=== PATIENT | male | born 1945 | race Caucasian/White ===

== ENCOUNTER 2018-11-29 22:39 | Observation (INO) | payer OTHER ==
[2018-11-29 22:56] VITALS: BMI 28.8
--- NOTE | 2018-11-29 23:27 | PDOC ---
Attending Attestation - Medical Decision Making 11/30/18 00:32 EXAM: HEAD CT WITHOUT CONTRAST HISTORY: Rule out bleed COMPARISON: None. FINDINGS: The ventricular system is midline and nondilated. The sulcal pattern is normal for the patient's age. There is no bleed, mass, extra-axial fluid collection or mass effect. No skull fracture or skull lesion is identified. The visualized paranasal sinuses and mastoid air cells are clear. IMPRESSION: No evidence of acute pathology. One or more of the following dose reduction techniques were used: automated exposure control, adjustment of the mA and/or kV according to patient size, use of iterative reconstructive technique. Read by: Hubert Mittal MD <Quyen Grier - Last Filed: 11/30/18 00:31> - Resident Resident Name: Sydney Myrick - ED Attending Attestation I have performed the following: I have examined & evaluated the patient, The case was reviewed & discussed with the resident, I agree w/resident's findings & plan, Exceptions are as noted - HPI HPI: 11/29/18 23:26 73 yo male BIBA and paramedics report he is intoxicated and was found outside his home with head trauma .The patient does not recall what happened. 11/29/18 23:41 - Physicial Exam PE: 11/29/18 23:27 wnwd 73 yo male with scalp laceration after a fall head curved 5 cm laceration, three abrasions noted on his scalp neck no midline tenderness lungs cta b/l cvs [id number] abdoman: flat,no rebound skin warm and dry neuro pt is intoxicated but able to converse and move all his extremities 11/30/18 00:39 11/30/18 00:54 - Medical Decision Making 11/30/18 00:39 ekg atrial sensed ventricular rhythm with occasional premature ventricular complex. PT very confused and will be placed on OBS admit 11/30/18 19:02 <Daija Multani - Last Filed: 11/30/18 19:02> Attestations - Attestations 11/30/18 00:32 Documentation prepared by Quyen Grier, acting as vice president medical affairs for Daija Multani MD. <Quyen Grier - Last Filed: 11/30/18 00:31>
--- NOTE | 2018-11-29 23:51 | PDOC ---
History of Present Illness - General Chief Complaint: Injury Stated Complaint: FALL Time Seen by Provider: 11/29/18 22:40 - History of Present Illness Initial Comments: Prosper Quinn is a 73yo man with a PMH of HTN, HLD, DJD, s/p pacemaker (doesn't know why) who was found outside by EMS with a head injury. EMS stated that he was "very drunk" and had an apparent head injury. Mr Quinn reports that he does not remember the injury or event. He recalls going to watch a [employer] today, returning home, starting to heat up dinner. He had "a vodka cocktail" (specifically states only one multiple times) while talking on the phone with a friend. The next thing he remembers, EMS was in his apartment. He says that his downstairs neighbor called the ambulance. He has no idea what happened. Mr Quinn repeats this story at least a dozen times while being examined. Past History - Past Medical History Allergies/Adverse Reactions: Allergies Allergy/AdvReac Type Severity Reaction Status Date / Time No Known Allergies Allergy Verified 08/02/14 15:40 Home Medications: Ambulatory Orders Amlodipine Besylate [Norvasc -] 5 mg PO DAILY 08/02/14 Aspirin [ASA -] 81 mg PO DAILY 08/02/14 Atorvastatin Ca [Lipitor -] 10 mg PO ASDIR 08/02/14 Levothyroxine [Synthroid -] 175 mcg PO DAILY 08/02/14 Ramipril 10 mg PO DAILY 08/02/14 Voltaren Gel 1% 1 applic TP ASDIR 08/02/14 Albuterol Sulfate [Proair Hfa] 8.5 gm IH PRN 11/29/18 Topiramate 25 mg PO BID 11/29/18 Anemia: No Asthma: (Sarcoidosis-no symptoms) Cancer: No Cardiac Disorders: Yes (RBBB) CVA: No COPD: No CHF: No Dementia: No Diabetes: No GI Disorders: Yes (H/O POLYPS) Disorders: Yes (BPH) HTN: Yes Hypercholesterolemia: Yes Liver Disease: No Seizures: No Thyroid Disease: Yes - Surgical History Abdominal Surgery: No Appendectomy: Yes Cardiac Surgery: Yes (PACEMAKER) Cholecystectomy: No Lung Surgery: No Neurologic Surgery: No Orthopedic Surgery: Yes (BILATERAL KNEE REPLACEMENTS) - Suicide/Smoking/Psychosocial Hx Smoking History: Unknown if ever smoked Have you smoked in the past 12 months: No If you are a former smoker, when did you quit?: 30 yrs ago Hx Alcohol Use: Yes Drug/Substance Use Hx: No (unable to assess) Substance Use Type: Alcohol Hx Substance Use Treatment: No Review of Systems - Review of Systems Comments:: 11/30/18 00:21 Could not obtain, Pt confused *Physical Exam - Vital Signs Last Vital Signs Temp Pulse Resp BP Pulse Ox 97.1 F L 78 19 134/71 98 11/29/18 22:53 11/29/18 22:53 11/29/18 22:53 11/29/18 22:53 11/29/18 22:53 - Physical Exam Comments: General: Confused, no acute distress HEENT: PERRL, EOMI, MMM. Voice slightly slurred. Limited neck ROM (appears chronic per previous visit); no posterior neck tenderness or apparent injury. Approx 3cm laceration on superior mid forehead. Dried blood over scalp, face. Apparent small left-sided abrasions. No ecchymosis, edema, or palpable injury. Cards: RRR, no murmur appreciated Pulm: Comfortable on room air, clear to auscultation bilaterally Abd: Soft, nontender, nondistended : No CVA tenderness Back: No bony tenderness, step-offs, deformities. No ecchymosis, edema, erythema , abrasions, or other injuries. Rectal: Normal tone, no blood noted, no perianal lesions Ext: Dried blood on b/l pant knees, but no obvious LE trauma. No tenderness to palpation. Ambulation deferred given fall risk. No LE edema. Moves all extremities, equal bilaterally. Vasc: Extremities WWP. Palpable radial and pedal pulses bilaterally Neuro: Alert, oriented to self, place date. Does not recall injury. Does not recall being outside. CN grossly intact, mildly slurred speech, motor/sensory grossly intact and symmetric Psych: Mood appropriate to situation Moderate Sedation - Procedure Monitoring Vital Signs: Procedure Monitoring Vital Signs Temperature 97.1 F L 11/29/18 22:53 Pulse Rate 78 11/29/18 22:53 Respiratory Rate 19 11/29/18 22:53 Blood Pressure 134/71 11/29/18 22:53 O2 Sat by Pulse Oximetry (%) 98 11/29/18 22:53 Procedures - Laceration/Wound Repair Frontal Wound Length: 2.6 to 5.0 cm Wound Explored: clean Wound's Depth, Shape: superficial Irrigated w/ Saline: Yes Anesthesia: 1% Lidocaine Amount of Anesthetic (ccs): 4 Wound Debrided: minimal Wound Repaired With: Sutures Suture Size/Type: 5:0, nylon Number of Sutures: 7 Layer Closure: No Sterile Dressing Applied: Yes ED Treatment Course - LABORATORY CBC & Chemistry Diagram: 11/30/18 00:06 11/30/18 00:06 - RADIOLOGY Radiology Studies Ordered: Category Date Time Status HEAD CT WITHOUT CONTRAST [CT] Stat CT Scan 11/29/18 23:34 Ordered CHEST X-RAY PORTABLE* [RAD] Stat Radiology 11/29/18 23:34 Ordered Medical Decision Making - Medical Decision Making 11/29/18 23:45 Prosper Quinn is a 73yo man with a PMH of HTN, HLD, DJD, s/p pacemaker placement (doesn't know why) who was found outside by EMS with a head injury. He does not remember the incident but was very repetitive during exam. - EMS stated pt was "very drunk" but no known h/o drinking, no obvious odor of alcohol. - Head laceration on superior forehead with dried blood over head and face. No other injury appreciated - Concern that confusion on exam may be due to head trauma, though cannot rule out alcohol or drug use. If fall is secondary to substance use, amnesia regarding the event is also concerning - h/o pacemaker, placed for unknown reasons. May have had syncopal event due to arrhythmia, CT, substance use. Also reports skipping multiple meals recently, 4- 5lb weight loss over several days, could be hypoglycemic or orthostatic. - CBC, CMP, mag, phos, EKG, trop, CXR, CT head, blood alcohol, UA, urine drug screen 11/30/18 01:35 - CT head completed, no acute abnormalities noted - Scalp laceration repaired at bedside. Lac on anterior upper forehead measuring 3cm, slighly flap shaped, clean and linear. Irrigated with saline, anesthetized with 4cc 1% lidocaine. Repaired with 7 simple interrupted sutures, 5-0 nylon. Bacitracin and sterile dressing applied. - 2x left-sided small linear abrasions repaired with dermabond. - 2x left sided abrasions, circular, 1.5cm in diameter, cleaned, abraded skin sharply debrided, bacitracin applied - Labs reviewed. Alcohol 176. No other concerning abnormalities - EKG completed. Ventricular paced rhythm with PVCs. - CXR w/o abnormalities - [employer] sent for hospital admission. 11/30/18 02:02 - Discussed with Dr Pathak. Will accept for admission. - Banana bag ordered due to unknown duration or frequency of alcohol use. Seen and discussed with Dr Multani. Sydney Myrick PGY1 *DC/Admit/Observation/Transfer Diagnosis at time of Disposition: Fall, Alcohol intoxication, Scalp laceration, Scalp abrasion - Discharge Dispostion Condition at time of disposition: Stable Decision to Admit order: Yes - Referrals - Patient Instructions - Post Discharge Activity
[2018-11-30 00:27] LABS: BASO % 0.3 % (0-2.0); EOS % 0.7 % (0-4.5); HEMATOCRIT 42.3 % (35.4-49); HEMOGLOBIN 14.7 GM/dL (11.7-16.9); LYMPH % 4.9 % (8-40); MCH 33.8 pg (25.7-33.7); MCHC 34.7 g/dl (32.0-35.9); MEAN CELL VOLUME 97.2 fl (80-96); MEAN PLT VOLUME 7.7 fl (7.5-11.1); MONO % 4.6 % (3.8-10.2); NEUT % 89.5 % (42.8-82.8); PLATELET COUNT 126 K/MM3 (134-434); RBC 4.35 M/mm3 (4.00-5.60); RDW 13.5 % (11.9-15.9)
[2018-11-30 00:51] LABS: ALBUMIN 3.9 g/dl (3.4-5.0); ALK PHOS 75 U/L (45-117); ANION GAP 12 MMOL/L (8-16); BILIRUBIN,TOTAL 0.6 mg/dL (0.2-1); BLOOD UREA NITROGEN 24 mg/dL (7-18); CALCIUM 8.8 mg/dL (8.5-10.1); CHLORIDE 111 mmol/L (98-107); CO2 21 mmol/L (21-32); CREATININE 1.3 mg/dL (0.55-1.3); GLUCOSE,RANDOM 89 mg/dL (74-106); MAGNESIUM 2.1 mg/dL (1.8-2.4); PHOSPHOROUS 2.9 mg/dL (2.5-4.9); POTASSIUM 3.9 mmol/L (3.5-5.1); SGOT/AST 39 U/L (15-37); SGPT/ALT 27 U/L (13-61); SODIUM 144 mmol/L (136-145); TOT PROT 6.7 g/dl (6.4-8.2)
[2018-11-30] MEDS ORDERED: FOLIC ACID INJECTION - 1 MG, THIAMINE HCL 100 MG, MULTIVIT INJECTION ADULT 10 ML in SOD... IVPB ONE (02:04)
--- NOTE | 2018-11-30 02:42 | PN ---
Teaching Attending Note Name of Resident: Char Rios ATTENDING PHYSICIAN STATEMENT I saw and evaluated the patient. I reviewed the resident's note and discussed the case with the resident. I agree with the resident's findings and plan as documented. SUBJECTIVE: Patient is a 73 year old man with a PMH of alcohol abuse, HTN, HLD, DJD, s/p pacemaker (doesn't know why), bilateral knee replacement and ?sarcoidosis who was found outside by EMS with a head injury. EMS stated that he was "very drunk " and had an apparent head injury. Patient does not remember the injury or event. He recalls going to watch a [employer] today, returning home, starting to heat up dinner. He had "a vodka cocktail" (specifically states only one multiple times) while talking on the phone with a friend. The next thing he remembers, EMS was in his apartment. He says that his downstairs neighbor called the ambulance. He has no idea what happened. On arrival in the ER he was noted to be very repetitive. He denies, nausea, vomiting, chest pain, headache, abdominal pain, dysuria or diarrhea. OBJECTIVE: Alert Vital Signs Period Temp Pulse Resp BP Sys/Heredia Pulse Ox Last 24 Hr 97.1 F 78 19 134/71 98 HEENT: No Jaundice, eye redness or discharge, PERRLA, EOMI. Forehead laceration and abrasion left side of scalp. External ears are normal and hearing is grossly intact. No nasal discharge. Neck: Supple, nontender. No palpable adenopathy or thyromegaly. No JVD Chest: Good effort. Clear to auscultation and percussion. Heart: Regular. No S3, rub or murmur Abdomen: Not distended, soft, nontender and no HSM. No rebound or guarding. Normal bowel sounds. Ext: Peripheral pulses intact. No leg edema. Skin: Warm and dry. No petechiae, rash or ecchymosis. Neuro: Alert. Oriented to person and place. No tremors or asterexis. CN 2-12 grossly intact. Sensation grossly intact in all four extremities and DTR are symmetric. Gait cannot be tested for safety reasons. Plantar reflexes are flexor. Psych: Appropriate affect. Appears withdrawn and sad. Current Medications Generic Name Dose Route Start Last Admin Trade Name Freq PRN Reason Stop Dose Admin Folic Acid 1 mg/ Thiamine HCl 1,000 mls @ 125 mls/hr 11/30/18 02:04 11/30/18 02:19 100 mg/ Multivitamins/Minerals IVPB 11/30/18 10:03 125 mls/hr 10 ml/ Sodium Chloride ONCE ONE Administration Home Medications Medication Instructions Recorded Amlodipine Besylate [Norvasc -] 5 mg PO DAILY 08/02/14 Aspirin [ASA -] 81 mg PO DAILY 08/02/14 Atorvastatin Ca [Lipitor -] 10 mg PO ASDIR 08/02/14 Levothyroxine [Synthroid -] 175 mcg PO DAILY 08/02/14 Ramipril 10 mg PO DAILY 08/02/14 Voltaren Gel 1% 1 applic TP ASDIR 08/02/14 Albuterol Sulfate [Proair Hfa] 8.5 gm IH PRN 11/29/18 Topiramate 25 mg PO BID 11/29/18 Abnormal Lab Results 11/30/18 11/30/18 00:06 00:06 MCV 97.2 H MCH 33.8 H Plt Count 126 L Neutrophils % 89.5 H Lymphocytes % 4.9 L Chloride 111 H BUN 24 H AST 39 H Alcohol, Quantitative 176.7 H ASSESSMENT AND PLAN: 1. Alcohol intoxication/Fall/Syncope and Head Injury - Patient does not remember what happened. No acute abnormality on CXR or head CT. Though his findings may be explained by alcohol intoxication, will get a brain/brainstem/ cerebellar MRI in 24 hours to exclude other possible causes. EKG shows ventricular paced rhythm with no significant ST-T wave changes. Will admit to telemetry for monitoring and rule out ACS. Interrogate pacemaker, get carotid doppler and ECHO. Consult Neurology and cardiology. Implement [facility] alcohol withdrawal protocol, neurochecks, fall, seizure and aspiration precautions. Treat with banana bag,thiamine and folic acid and monitor electrolytes (Ca,Mg,K,P). Thermoplastic Technician patient about abstaining from alcohol and refer to alcohol detox upon discharge. Consult database marketing specialist. 2. Hypertension - Restart outpatient antihypertensive drugs and revise regimen to ensure smooth [id number] good BP control. Nonpharmacologic measures to control hypertension like weight loss, salt restriction and exercise discussed. 3. DVT prophylaxis - Lovenox 40 mg SQ q 24 hours. 4. Advance directives - Full code
--- NOTE | 2018-11-30 03:18 | HP ---
CHIEF COMPLAINT: s/p fall, EtOH intox PCP: Dr. Layne (also lockstitch zipper setter) HISTORY OF PRESENT ILLNESS: 73M w/ pmhx of HTN, HLD, hx of "ventricular problems" (s/p pacemaker placement x2, 1999 and then replaced 2008) presented after a fall at home. He does not remember any of the events immediately prior and after the fall. Earlier on the day, he reports attending a [id number] tournament in [place] as a spectator, came home, made his daily vodka cocktail, put in his microwave dinner and called his friend. He states he remembers talking to his friend for at least an hour on the phone and finishing the conversation. Per ED, he was then found outside of his apt by his neighbor on the ground. He does not recall the nature of his fall and could not endorse any dizziness, headaches, chest pain, sob, leg weakness at the time. The next thing he remembered was waking up in the hospital. Per ED staff, pt was found by EMS with blood all over and a head laceration which was subsequently sutured in the ED. He currently denies any head pain, tongue biting, bowel/urinary incontinence, hx of seizures. Of note, he currently follows up with Dr. Layne ([facility] lockstitch zipper setter) and last saw her March 2018. He does not remember the last time his pacemaker was interrogated , nor does he know why had a pacemaker placed. ER course was notable for: (1) BUN/Cr 24/1.3, Alc 176.7 (2) Head CT neg (3) Recent Travel: Denies PAST MEDICAL HISTORY: As per HPI PAST SURGICAL HISTORY: b/l knee replacement 3 rotator cuff repairs appendectomy Social History: Smoking: Denies Alcohol: 1 vodka cocktail daily Drugs: Denies Family History: Denies Allergies No Known Allergies Allergy (Verified 08/02/14 15:40) HOME MEDICATIONS: Home Medications Medication Instructions Recorded Amlodipine Besylate [Norvasc -] 5 mg PO DAILY 08/02/14 Aspirin [ASA -] 81 mg PO DAILY 08/02/14 Atorvastatin Ca [Lipitor -] 10 mg PO ASDIR 08/02/14 Levothyroxine [Synthroid -] 175 mcg PO DAILY 08/02/14 Ramipril 10 mg PO DAILY 08/02/14 Voltaren Gel 1% 1 applic TP ASDIR 08/02/14 Albuterol Sulfate [Proair Hfa] 8.5 gm IH PRN 11/29/18 Topiramate 25 mg PO BID 11/29/18 REVIEW OF SYSTEMS All negative, except for HPI PHYSICAL EXAMINATION Vital Signs - 24 hr 11/29/18 22:53 Temperature 97.1 F L Pulse Rate 78 Respiratory 19 Rate Blood Pressure 134/71 O2 Sat by Pulse 98 Oximetry (%) GENERAL: Awake, alert, and fully oriented, in no acute distress. HEENT: Head laceration, s/p sutured on frontal region. Bandages c/d/i. No tenderness to palpation. NECK: Normal range of motion, supple without lymphadenopathy, JVD, or masses. LUNGS: CTA B/L. No wheezes noted. Symmetric chest rise. HEART: RRR. Normal S1, S2. No murmurs noted. ABDOMEN: Soft, NT/ND. Normoactive bowel sounds. No ecchymoses. No rebound or guarding. MUSCULOSKELETAL: Normal range of motion at all joints. No bony deformities or tenderness. No CVA tenderness. UPPER EXTREMITIES: 2+ pulses, warm, well-perfused. No cyanosis. No clubbing. No peripheral edema. LOWER EXTREMITIES: 2+ pulses, warm, well-perfused. No calf tenderness. No peripheral edema. NEUROLOGICAL: Facial muscles intact. No tongue deviation. B/l sensation intact. Normal [id number] test. CIWA 0. Laboratory Results - last 24 hr 11/30/18 11/30/18 00:06 00:06 WBC 8.0 RBC 4.35 Hgb 14.7 Hct 42.3 MCV 97.2 H MCH 33.8 H MCHC 34.7 RDW 13.5 Plt Count 126 L MPV 7.7 Absolute Neuts (auto) 7.2 Neutrophils % 89.5 H Lymphocytes % 4.9 L Monocytes % 4.6 Eosinophils % 0.7 Basophils % 0.3 Nucleated RBC % 0 Sodium 144 Potassium 3.9 Chloride 111 H Carbon Dioxide 21 Anion Gap 12 BUN 24 H Creatinine 1.3 Creat Clearance w eGFR 54.11 Random Glucose 89 Calcium 8.8 Phosphorus 2.9 Magnesium 2.1 Total Bilirubin 0.6 AST 39 H ALT 27 Alkaline Phosphatase 75 Creatine Kinase 303 Creatine Kinase Index 0.9 CK-MB (CK-2) 3.0 Troponin I 0.04 Total Protein 6.7 Albumin 3.9 Alcohol, Quantitative 176.7 H IMAGING: * CXR: unremarkable * Head CT: No evid of acute IC pathology. * EKG: Ventricular paced rhythm with PVCs. HR 61, QTc 519 ms ASSESSMENT/PLAN: 73M w/ pmhx of HTN, HLD, hx of "ventricular problems" (s/p pacemaker placement x2, 1999 and then replaced 2008) presented after a fall at home. #S/p fall; alcohol intoxication/Syncope and head injury -His syncopal episode is likely due to alcohol intoxication, so consider neuro consult, possible brain MRI. -Pt also has a EKG showed no significant ST-T wave changes; trops 0.04, will repeat trops and EKG, mag/phos -Serum alcohol 176.7. CIWA 0, consider Librium protocol if CIWA > 8. IV Banana bag, folic acid, thiamine ordered. -Carotid duplex ordered -Echo ordered -Admit to tele obs to r/o ACS. Pt currently has pacemaker (placed 2008), but it has not been interrogated in 3 years according to patient although he does follow up with a lockstitch zipper setter. Consider cardio consult to address possible cardiogenic cause of syncopal episode given pt's significant cardiac history. -Neurochecks, seizure/fall risk precautions #HTN Cont home med: Amlodipine 4 QD, Ramipril 10 QD #HLD Cont home med: Atorvastatin 10 QD #Hyperthyroidism Cont home med: Synthroid 125 QD #S/p pacemaker placement Cont home med: ASA 81 #Prophylaxis -Lovenox 40 SQ #FEN -banana bag given -recheck lytes in AM -sodium-controlled diet dispo -admit to tele obs -medications have been reconciled -full code Visit type - Emergency Visit Emergency Visit: Yes ED Registration Date: 11/30/18 Care time: The patient presented to the Emergency Department on the above date and was hospitalized for further evaluation of their emergent condition. - New Patient This patient is new to me today: Yes Date on this admission: 11/30/18 - Critical Care Critical Care patient: No
[2018-11-30 05:47] LABS: BASO % 0.5 % (0-2.0); EOS % 1.2 % (0-4.5); HEMATOCRIT 38.9 % (35.4-49); HEMOGLOBIN 13.4 GM/dL (11.7-16.9); LYMPH % 12.8 % (8-40); MCH 33.1 pg (25.7-33.7); MCHC 34.6 g/dl (32.0-35.9); MEAN CELL VOLUME 95.8 fl (80-96); MEAN PLT VOLUME 7.5 fl (7.5-11.1); MONO % 8.1 % (3.8-10.2); NEUT % 77.4 % (42.8-82.8); PLATELET COUNT 118 K/MM3 (134-434); RBC 4.06 M/mm3 (4.00-5.60); RDW 13.7 % (11.9-15.9); WHITE BLOOD COUNT 3.8 K/mm3 (4.0-10.0)
[2018-11-30 06:12] LABS: ALBUMIN 3.6 g/dl (3.4-5.0); ALK PHOS 70 U/L (45-117); ANION GAP 9 MMOL/L (8-16); BILIRUBIN,TOTAL 0.6 mg/dL (0.2-1); BLOOD UREA NITROGEN 20 mg/dL (7-18); CALCIUM 8.3 mg/dL (8.5-10.1); CHLORIDE 112 mmol/L (98-107); CO2 23 mmol/L (21-32); CREATININE 1.1 mg/dL (0.55-1.3); GLUCOSE,RANDOM 78 mg/dL (74-106); MAGNESIUM 2.2 mg/dL (1.8-2.4); PHOSPHOROUS 3.2 mg/dL (2.5-4.9); POTASSIUM 3.9 mmol/L (3.5-5.1); SGOT/AST 21 U/L (15-37); SGPT/ALT 23 U/L (13-61); SODIUM 143 mmol/L (136-145); TOT PROT 6.2 g/dl (6.4-8.2)
[2018-11-30] MEDS ORDERED: LEVOTHYROXINE NA 125 MCG TABLET (FP) PO SCH (07:00)
[2018-11-30 07:02] LABS: COCAINE, UR NEGATIVE ng/ml (CUTOFF=300); METHADONE, UR NEGATIVE ng/ml (CUTOFF=300); OPIATES, URI NEGATIVE ng/ml (CUTOFF=300); PHENCYCLIDINE,URINE NEGATIVE ng/ml (CUTOFF=25); URINE AMPHETAMINES NEGATIVE ng/ml (CUTOFF=500); URINE BARBITURATES NEGATIVE ng/ml (CUTOFF=200); URINE BENZODIAZEPINES NEGATIVE ng/ml (CUTOFF=200)
[2018-11-30] MEDS ORDERED: ASPIRIN 81 MG CHEWABLE TABLETS PO SCH (10:00)
[2018-11-30] MEDS ORDERED: THIAMINE HCL 100 MG TABLET (FP) PO SCH (10:00)
[2018-11-30] MEDS ORDERED: amLODIPine BESYLATE 5 MG TABLET (FP) PO SCH (10:00)
[2018-11-30] MEDS ORDERED: ENOXAPARIN NA (PORCINE) 40 MG/0.4 ML DISP.SYRIN SQ SCH (10:00)
[2018-11-30] MEDS ORDERED: FOLIC ACID 1 MG TABLET (FP) PO SCH (10:00)
[2018-11-30] MEDS ORDERED: RAMIPRIL 5 MG CAPSULE (FP) PO SCH (10:00)
--- NOTE | 2018-11-30 10:35 | EKG ---
Test Reason : Blood Pressure : / mmHG Vent. Rate : 061 BPM Atrial Rate : 061 BPM P-R Int : 196 ms QRS Dur : 218 ms QT Int : 516 ms P-R-T Axes : 002 -67 103 degrees QTc Int : 519 ms Atrial-sensed ventricular-paced rhythm WITH OCCASIONAL PREMATURE VENTRICULAR COMPLEXES ABNORMAL ECG NO PREVIOUS ECGS AVAILABLE Confirmed by DOUG GONZALEZ MD ([id number]) on 11/30/2018 10:35:42 AM Referred By: Confirmed By:DOUG GONZALEZ MD
--- NOTE | 2018-11-30 14:30 | ECHO ---
Name: ANNA HORTON Exam:Adult Echocardiogram Study Date: 11/30/2018 01:29 PM Age: 73 yrs Reason For Study: r/nikki webb Height: 68 in Weight: 190 lb BSA: 2.0 m2 MMode/2D Measurements & Calculations IVSd: 1.0 cm Ao root diam: 3.6 cm LVIDd: 5.8 cm LA dimension: 4.1 cm LVIDs: 3.9 cm ACS: 1.9 cm LVPWd: 0.86 cm IVSs: 1.5 cm LVPWs: 1.5 cm EDV(Teich): 169.2 ml ESV(Teich): 67.1 ml LVOT diam: 2.0 cm Doppler Measurements & Calculations MV E max butch: 64.2 cm/sec Ao V2 max: 256.6 cm/sec MV A max butch: 83.4 cm/sec Ao max P.4 mmHg MV E/A: 0.77 Ao V2 mean: 203.4 cm/sec Ao mean P.2 mmHg Ao V2 VTI: 52.0 cm BRY(I,D): 1.3 cm2 BRY(V,D): 1.3 cm2 LV V1 max P.7 mmHg SV(LVOT): 69.4 ml LV V1 mean P.0 mmHg LV V1 max: 108.4 cm/sec LV V1 mean: 84.5 cm/sec LV V1 VTI: 22.2 cm TR max butch: 275.6 cm/sec Med Peak E' Butch: 5.2 cm/sec TR max P.4 mmHg Med E/e': 12.8 Lat Peak E' Butch: 10.1 cm/sec Lat E/e': 6.4 Procedure A complete two-dimensional transthoracic echocardiogram was performed (2D, M-mode, Doppler and color flow Doppler). Left Ventricle The left ventricle is normal in size. Left ventricular systolic function is normal. Ejection Fraction = 60- 65%. Grade I diastolic dysfunction, (abnormal relaxation pattern). Ratio E/E'= 12. No regional wall m otion abnormalities noted. Right Ventricle The right ventricle is normal size. There is a pacemaker lead in the right ventricle. The right ventr icular systolic function is normal. Atria The left atrium is mildly dilated. Right atrial size is normal. There is a catheter/pacemaker lead se en in the right atrium. Mitral Valve There is mild mitral annular calcification. There is no mitral regurgitation noted. Tricuspid Valve The tricuspid valve is normal in structure and function. There is mild tricuspid regurgitation. Pulmo nary artery systolic pressure is at least 37 mmHg assuming RA pressure of 3 mmHg. Aortic Valve There is mild aortic sclerosis.;. No aortic regurgitation is present. Pulmonic Valve The pulmonic valve is not well visualized. Great Vessels The aortic root is normal size. Pericardium/Pleura There is no pericardial effusion. Interpretation Summary The left ventricle is normal in size. Left ventricular systolic function is normal. No regional wall motion abnormalities noted. Ejection Fraction = 60-65%. Grade I diastolic dysfunction, (abnormal relaxation pattern). Ratio E/E'= 12 c/w normal filling pressure The right ventricular systolic function is normal. The left atrium is mildly dilated. Right atrial size is normal. There is a catheter/pacemaker lead seen in the right atrium and right ventricle There is mild mitral annular calcification. There is mild tricuspid regurgitation. Pulmonary artery systolic pressure is at least 37 mmHg assuming RA pressure of 3 mmHg There is mild aortic sclerosis. There is no pericardial effusion. Previous study is not available for comparison Azeem Vail MD 11/30/2018 02:29 PM
[2018-11-30 15:37] VITALS: BP 158/67; PULSE 80; TEMP 98.4
--- NOTE | 2018-11-30 16:28 | PN ---
Teaching Attending Note Name of Resident: Cari Hernandez ATTENDING PHYSICIAN STATEMENT I saw and evaluated the patient. I reviewed the resident's note and discussed the case with the resident. I agree with the resident's findings and plan as documented. SUBJECTIVE: Patient is comfortable with no acute distress. wants to go home. OBJECTIVE: Vital Signs Temperature 98.4 F 11/30/18 15:36 Pulse Rate 80 11/30/18 15:36 Respiratory Rate 18 11/30/18 15:36 Blood Pressure 158/67 11/30/18 15:36 O2 Sat by Pulse Oximetry (%) 98 11/30/18 15:36 GENERAL: Awake, alert, and fully oriented, in no acute distress. HEENT: Head laceration, s/p sutured on frontal region. Bandages c/d/i. No tenderness to palpation. NECK: Normal range of motion, supple without lymphadenopathy, JVD, or masses. LUNGS: CTA B/L. No wheezes noted. Symmetric chest rise. HEART: RRR. Normal S1, S2. No murmurs noted. ABDOMEN: Soft, NT/ND. Normoactive bowel sounds. No ecchymoses. No rebound or guarding. MUSCULOSKELETAL: Normal range of motion at all joints. No bony deformities or tenderness. No CVA tenderness. EXTREMITIES: 2+ pulses, warm, well-perfused. No cyanosis. No clubbing. No peripheral edema. NEUROLOGICAL: Facial muscles intact. No tongue deviation. B/l sensation intact. CBCD WBC 3.8 K/mm3 (4.0-10.0) L 11/30/18 05:30 RBC 4.06 M/mm3 (4.00-5.60) 11/30/18 05:30 Hgb 13.4 GM/dL (11.7-16.9) 11/30/18 05:30 Hct 38.9 % (35.4-49) 11/30/18 05:30 MCV 95.8 fl (80-96) 11/30/18 05:30 MCHC 34.6 g/dl (32.0-35.9) 11/30/18 05:30 RDW 13.7 % (11.9-15.9) 11/30/18 05:30 Plt Count 118 K/MM3 (134-434) L 11/30/18 05:30 MPV 7.5 fl (7.5-11.1) 11/30/18 05:30 CMP Sodium 143 mmol/L (136-145) 11/30/18 05:30 Potassium 3.9 mmol/L (3.5-5.1) 11/30/18 05:30 Chloride 112 mmol/L (98-107) H 11/30/18 05:30 Carbon Dioxide 23 mmol/L (21-32) 11/30/18 05:30 Anion Gap 9 MMOL/L (8-16) 11/30/18 05:30 BUN 20 mg/dL (7-18) H 11/30/18 05:30 Creatinine 1.1 mg/dL (0.55-1.3) 11/30/18 05:30 Creat Clearance w eGFR > 60 (>60) 11/30/18 05:30 Random Glucose 78 mg/dL (74-106) 11/30/18 05:30 Calcium 8.3 mg/dL (8.5-10.1) L 11/30/18 05:30 Total Bilirubin 0.6 mg/dL (0.2-1) 11/30/18 05:30 AST 21 U/L (15-37) 11/30/18 05:30 ALT 23 U/L (13-61) 11/30/18 05:30 Alkaline Phosphatase 70 U/L (45-117) 11/30/18 05:30 Total Protein 6.2 g/dl (6.4-8.2) L 11/30/18 05:30 Albumin 3.6 g/dl (3.4-5.0) 11/30/18 05:30 CARDIAC ENZYMES Creatine Kinase 303 U/L (26-308) 11/30/18 00:06 Troponin I 0.04 ng/ml (0.00-0.05) 11/30/18 05:30 Home Medications Medication Instructions Recorded Amlodipine Besylate [Norvasc -] 5 mg PO DAILY 08/02/14 Aspirin [ASA -] 81 mg PO DAILY 08/02/14 Atorvastatin Ca [Lipitor] 10 mg PO ASDIR 08/02/14 Ramipril 10 mg PO DAILY 08/02/14 Voltaren Gel 1% 1 applic TP ASDIR 08/02/14 Albuterol Sulfate [Proair Hfa] 8.5 gm IH PRN 11/29/18 Topiramate 50 mg PO AM 11/29/18 Levothyroxine [Synthroid -] 125 mcg PO DAILY 11/30/18 Topiramate 25 mg PO HS 11/30/18 CXR: unremarkable Head CT: No evid of acute IC pathology. EKG: Ventricular paced rhythm with PVCs. HR 61, QTc 519 ms ASSESSMENT AND PLAN: Patient is a 73yo male with pmhx of HTN, HLD, (s/p pacemaker placement x2, 1999 and then replaced 2008) presented after a fall at home. #S/p fall; due to alcohol intoxication/Syncope: head ct no acute pathology, Carotid Duplex is negative, echo: is negative #HTN: Cont home med: Amlodipine 4 QD, Ramipril 10 QD #HLD:Cont home med: Atorvastatin 10 QD #Hyperthyroidism: Cont home med: Synthroid 125 QD #S/p pacemaker placement:Cont home med: ASA 81
--- NOTE | 2018-11-30 16:45 | DS ---
Physical Exam: SUBJECTIVE: Patient seen and examined at bedside no acute events overnihgt patient states he doesn't remember falling at home- he states he did not have more than 1 martini; denies CP/SOB/N/V fevers or chills; denies hallucinations OBJECTIVE: Vital Signs Period Temp Pulse Resp BP Sys/Heredia Pulse Ox Last 24 Hr 97.1 F-98.4 F 78-88 17-19 134-158/61-72 98-99 PHYSICAL EXAM GENERAL: The patient is awake, alert, and fully oriented, in no acute distress; . EYES: PEERLA: EOMI; no scleral icterus NECK: no JVD; no lymphadenopathy LUNGS: CTA B/L; no rales, rhonchi or wheezing. HEART: Regular rate and rhythm, S1, S2 without murmur, rub or gallop. ABDOMEN: Soft, nontender, nondistended, normoactive bowel sounds, no guarding, no rebound, no hepatosplenomegaly, no masses. EXTREMITIES: 2+ pulses, warm, well-perfused, no edema. PSYCH: Normal mood, normal affect. SKIN: Warm, dry, normal turgor, no rashes or lesions noted. LABS Laboratory Results - last 24 hr 11/30/18 11/30/18 11/30/18 00:06 00:06 05:30 WBC 8.0 3.8 L RBC 4.35 4.06 Hgb 14.7 13.4 Hct 42.3 38.9 MCV 97.2 H 95.8 MCH 33.8 H 33.1 MCHC 34.7 34.6 RDW 13.5 13.7 Plt Count 126 L 118 L MPV 7.7 7.5 Absolute Neuts (auto) 7.2 3.0 Neutrophils % 89.5 H 77.4 Lymphocytes % 4.9 L 12.8 D Monocytes % 4.6 8.1 Eosinophils % 0.7 1.2 Basophils % 0.3 0.5 Nucleated RBC % 0 0 Sodium 144 Potassium 3.9 Chloride 111 H Carbon Dioxide 21 Anion Gap 12 BUN 24 H Creatinine 1.3 Creat Clearance w eGFR 54.11 Random Glucose 89 Calcium 8.8 Phosphorus 2.9 Magnesium 2.1 Total Bilirubin 0.6 AST 39 H ALT 27 Alkaline Phosphatase 75 Creatine Kinase 303 Creatine Kinase Index 0.9 CK-MB (CK-2) 3.0 Troponin I 0.04 Total Protein 6.7 Albumin 3.9 Opiates Screen Methadone Screen Barbiturate Screen Phencyclidine Screen Ur Amphetamines Screen MDMA (Ecstasy) Screen Benzodiazepines Screen Cocaine Screen U Marijuana (THC) Screen Alcohol, Quantitative 176.7 H 11/30/18 11/30/18 11/30/18 05:30 06:09 06:30 WBC RBC Hgb Hct MCV MCH MCHC RDW Plt Count MPV Absolute Neuts (auto) Neutrophils % Lymphocytes % Monocytes % Eosinophils % Basophils % Nucleated RBC % Sodium 143 Potassium 3.9 Chloride 112 H Carbon Dioxide 23 Anion Gap 9 BUN 20 H Creatinine 1.1 Creat Clearance w eGFR > 60 Random Glucose 78 Calcium 8.3 L Phosphorus 3.2 Cancelled Magnesium 2.2 Cancelled Total Bilirubin 0.6 AST 21 ALT 23 Alkaline Phosphatase 70 Creatine Kinase Creatine Kinase Index CK-MB (CK-2) Troponin I 0.04 Total Protein 6.2 L Albumin 3.6 Opiates Screen Negative Methadone Screen Negative Barbiturate Screen Negative Phencyclidine Screen Negative Ur Amphetamines Screen Negative MDMA (Ecstasy) Screen Negative Benzodiazepines Screen Negative Cocaine Screen Negative U Marijuana (THC) Screen Negative Alcohol, Quantitative imaging: head CT negative carotid dopplers: no evidence of hemodynaically significant stenoses HOSPITAL COURSE: Date of Admission:11/30/18 73 y/o male with PMH of HTN, HLD, "ventricular problems" presented after a fall at home . patient states that he was having a martini at home while on the phone with a friend next thing he knew he passed out- his neighbor called the EMS and he was brought here. he does not recall passing out - he had no dizziness or vomiting or chest pain leading up to the event. this has never happened to him before. Upon arrival to the ED his vitals were stable, labs were within normal limits except his alcohol level was 176.6 . his CIWA on arrival was 0. He got a head CT which was negative. he got an echo done which was normal and carotid dopplers were done which showed no evidence of heodynamically significant stenosis. He was sent home with instructions to see his PCP within one week and to refrain from excessive alcohol use. Date of Discharge: 11/30/18 Minutes to complete discharge: 39 Discharge Summary Reason For Visit: ABRASION OF SCALP/ALCOHOLIC INTOXICATION/FALL Condition: Stable - Instructions Diet, Activity, Other Instructions: You came to the hospital after you passed out at home and your blood alcohol level was found to be elevated. A cat scan of your head was done which was negative. In addition, an ultrasound of your heart and carotid arteries was done both of which were normal. Please resume all of your home medications Please follow up with your primary care physician, Dr. 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 *if you begin to experience any chest pain, dizziness, shortness of breath or have anymore falls at home please return to the emergency room immediately Referrals: Konstantin Layne [Non Staff, Medical] - 1 Week Disposition: HOME - Home Medications Comprehensive Discharge Medication List: Ambulatory Orders Amlodipine Besylate [Norvasc -] 5 mg PO DAILY 08/02/14 Aspirin [ASA -] 81 mg PO DAILY 08/02/14 Atorvastatin Ca [Lipitor] 10 mg PO ASDIR 08/02/14 Ramipril 10 mg PO DAILY 08/02/14 Voltaren Gel 1% 1 applic TP ASDIR 08/02/14 Albuterol Sulfate [Proair Hfa] 8.5 gm IH PRN 11/29/18 Topiramate 50 mg PO AM 11/29/18 Levothyroxine [Synthroid -] 125 mcg PO DAILY 11/30/18 Topiramate 25 mg PO HS 11/30/18 Problem List - Problems (1) Alcohol intoxication Code(s): F10.929 - ALCOHOL USE, UNSPECIFIED WITH INTOXICATION, UNSPECIFIED (2) Fall Code(s): W19.XXXA - UNSPECIFIED FALL, INITIAL ENCOUNTER This patient is new to me today: Yes Date on this admission: 11/30/18 Emergency Visit: Yes ED Registration Date: 11/30/18 Care time: The patient presented to the Emergency Department on the above date and was hospitalized for further evaluation of their emergent condition. Critical Care patient: No - Discharge Referral Referred to [facility] Med P.C.: No
[2018-11-30] MEDS ORDERED: ATORVASTATIN CA 10 MG TABLET (FP) PO SCH (22:00)
== END 2018-11-30 16:04 | disposition home or self-care (01) ==
LOC: JER 22:39 → JERBED 11-30 02:03
PROVIDERS: ADMIT Internal Medicine; ATTEND Internal Medicine
PROC: 0HQ1XZZ Repair Face Skin, External Approach (ICD-10-PCS; principal; 2018-11-30)
PROC: 3E033GC Introduction of Other Therapeutic Substance into Peripheral Vein, Percutaneous Approach (ICD-10-PCS; 2018-11-30)
PROC: 0HQ0XZZ Repair Scalp Skin, External Approach (ICD-10-PCS; 2018-11-30)
DX: F10.129 Alcohol abuse with intoxication, unspecified (principal); S01.81XA Laceration without foreign body of other part of head, initial encounter; S00.01XA Abrasion of scalp, initial encounter; W18.39XA Other fall on same level, initial encounter; Y93.89 Activity, other specified; Y92.008 Other place in unspecified non-institutional (private) residence as the place of occurrence of the external cause; R55 Syncope and collapse; I10 Essential (primary) hypertension; E78.5 Hyperlipidemia, unspecified; E05.90 Thyrotoxicosis, unspecified without thyrotoxic crisis or storm; N40.0 Benign prostatic hyperplasia without lower urinary tract symptoms; Z96.653 Presence of artificial knee joint, bilateral; Z95.0 Presence of cardiac pacemaker; Z79.82 Long term (current) use of aspirin
CPT/HCPCS: 12001; 12013; 36415; 70450-TC; 71045-TC-FY; 80053; 80307; 82550; 82553; 83735; 84100; 84484; 85025; 93005; 93010; 93306-TC; 93880-TC; 96365; 96366; 99285-25; G0378; J7030